=== PATIENT | male | born 1970 | race African-American/Black ===

== ENCOUNTER 2018-01-12 08:41 | Inpatient (IN) | payer MEDICAID ==
[2018-01-12] MEDS: ASPIRIN 81 MG TAB PO (09:24)
[2018-01-12] MEDS: SOD CHLORIDE 0.9% 500 ML IV (09:24)
[2018-01-12] MEDS: NITROGLYCERIN (SL) 0.4 MG TAB SL (09:25)
[2018-01-12] MEDS: ONDANSETRON 4 MG INJ IV (09:26)
[2018-01-12] MEDS: ENALAPRILAT 1.25 MG INJ IV (09:26)
[2018-01-12] MEDS: morphine 4 MG/ML VIAL IV (09:34)
[2018-01-12 09:45] LABS: ADD MAN DIFF? NO
[2018-01-12 09:48] LABS: WHITE BLOOD COUNT 3.9 10^3/ul (4.8-10.8)
[2018-01-12 09:48] LABS: ABNORMAL IP MESSAGE 1; BASOPHILS % 0.3 % (0.0-2.0); EOSINOPHILS # 0.1 10^3/ul (0.0-0.5); EOSINOPHILS % 2.1 % (0.0-7.0); HEMATOCRIT 36.2 % (42.0-52.0); HEMOGLOBIN 10.5 g/dl (14.0-18.0); LYMPHOCYTES # 1.4 10^3/ul (0.8-2.9); LYMPHOCYTES % 36.1 % (15.0-51.0); MEAN CORPUSCULAR VOLUME 75.7 fl (82.0-101.0); MONOCYTE # 0.4 10^3/ul (0.3-0.9); MONOCYTES % 9.9 % (0.0-11.0); NEUTROPHILS % 51.3 % (39.0-77.0); PLATELET COUNT 185 10^3/UL (140-415); RED BLOOD COUNT 4.78 10^6/ul (4.70-6.10); RED CELL DISTRIBUTION WIDTH 17.2 % (11.5-14.5)
[2018-01-12 10:28] LABS: ALANINE AMINOTRANSFERASE 24 IU/L (13-69); ALBUMIN 4.8 g/dl (3.3-4.9); ALBUMIN/GLOBULIN RATIO 1.33; ALKALINE PHOSPHATASE 61 IU/L (42-121); ANION GAP 19 (8-16); ASPARTATE AMINO TRANSFERASE 36 IU/L (15-46); BILIRUBIN,INDIRECT 0.3 mg/dl (0-1.1); BILIRUBIN,TOTAL 0.3 mg/dl (0.2-1.3); BLOOD UREA NITROGEN 11 mg/dl (7-20); CALCIUM 8.8 mg/dl (8.4-10.2); CARBON DIOXIDE 25 mmol/L (21-31); CHLORIDE 104 mmol/L (97-110); CREATININE 0.99 mg/dl (0.61-1.24); GLUCOSE 104 mg/dl (70-220); LIPASE 89 U/L (23-300); POTASSIUM 3.6 mmol/L (3.5-5.1); SODIUM 144 mmol/L (135-144); TOTAL PROTEIN 8.4 g/dl (6.1-8.1)
[2018-01-12 10:36] LABS: B-TYPE NATRIURETIC PEPTIDE 19 PG/ML (0-125); TROPONIN-I < 0.010 ng/ml (0.000-0.120)
[2018-01-12] MEDS ORDERED: NACL 0.9% 3 ML SYG IV (13:30)
[2018-01-12] MEDS: LISINOPRIL 5 MG TAB PO (13:30)
[2018-01-12] MEDS ORDERED: HYDROCODONE/APAP (5/325) TAB PO (13:30)
[2018-01-12 14:08] LABS: IRON 31 ug/dl (35-150)
[2018-01-12 14:18] LABS: % IRON SATURATION 7 % SAT (22-52); TOTAL IRON BINDING CAPACITY 453 ug/dl (241-421)
[2018-01-12 14:22] LABS: TROPONIN-I < 0.010 ng/ml (0.000-0.120)
[2018-01-12 16:27] LABS: FERRITIN 5.8 ng/ml (17.9-464.0)
[2018-01-12] MEDS ORDERED: SOD FERRIC GLUC COMPLX 125 MG in SOD CHLORIDE 0.9% 100 ML IVPB (18:00)
[2018-01-12] MEDS: IOHEXOL 14.3 MG(I)/ML (ADULT) BTL PO (21:52)
[2018-01-12 22:20] LABS: ANION GAP 14 (8-16); BLOOD UREA NITROGEN 12 mg/dl (7-20); CALCIUM 8.5 mg/dl (8.4-10.2); CARBON DIOXIDE 28 mmol/L (21-31); CHLORIDE 104 mmol/L (97-110); CREATININE 1.06 mg/dl (0.61-1.24); GLUCOSE 90 mg/dl (70-220); MAGNESIUM 1.8 mg/dl (1.7-2.5); POTASSIUM 3.4 mmol/L (3.5-5.1); SODIUM 143 mmol/L (135-144)
[2018-01-12] MEDS: POTASSIUM CHLORIDE (SR) 20 MEQ TAB PO (23:05)
[2018-01-13] MEDS: MAGNESIUM SULFATE 1 GM/D5W 100 ML IVPB (00:08)
[2018-01-13] MEDS: POTASSIUM CHLORIDE (SR) 20 MEQ TAB PO (00:08)
[2018-01-13] MEDS: SOD FERRIC GLUC COMPLX 125 MG in SOD CHLORIDE 0.9% 100 ML IVPB ×2 (01:04→17:14)
[2018-01-13 07:36] LABS: ADD MAN DIFF? NO
[2018-01-13 07:42] LABS: ABNORMAL IP MESSAGE 1; BASOPHILS % 0.6 % (0.0-2.0); EOSINOPHILS # 0.2 10^3/ul (0.0-0.5); EOSINOPHILS % 4.8 % (0.0-7.0); HEMATOCRIT 36.7 % (42.0-52.0); HEMOGLOBIN 10.4 g/dl (14.0-18.0); LYMPHOCYTES # 1.2 10^3/ul (0.8-2.9); LYMPHOCYTES % 34.3 % (15.0-51.0); MEAN CORPUSCULAR HEMOGLOBIN 21.8 pg (29.0-33.0); MEAN CORPUSCULAR HGB CONC 28.3 g/dl (32.0-37.0); MEAN CORPUSCULAR VOLUME 77.1 fl (82.0-101.0); MEAN PLATELET VOLUME 10.9 fl (7.4-10.4); MONOCYTE # 0.3 10^3/ul (0.3-0.9); NEUTROPHIL # 1.8 10^3/ul (1.6-7.5); PLATELET COUNT 154 10^3/UL (140-415); POSITIVE DIFF @See below; RED BLOOD COUNT 4.76 10^6/ul (4.70-6.10); RED CELL DISTRIBUTION WIDTH 17.2 % (11.5-14.5)
[2018-01-13 07:42] LABS: WHITE BLOOD COUNT 3.6 10^3/ul (4.8-10.8)
[2018-01-13 08:30] LABS: HEMOGLOBIN A1C 5.7 % (0-5.9)
[2018-01-13] MEDS: LISINOPRIL 5 MG TAB PO (08:33)
[2018-01-13] MEDS: BARIUM SULFATE 0.1% 450 ML BTL (VOLUMEN) PO ×3 (09:00→09:55)
[2018-01-13 09:19] LABS: ALANINE AMINOTRANSFERASE 23 IU/L (13-69); ALBUMIN 4.1 g/dl (3.3-4.9); ALBUMIN/GLOBULIN RATIO 1.28; ALKALINE PHOSPHATASE 57 IU/L (42-121); ANION GAP 10 (8-16); ASPARTATE AMINO TRANSFERASE 23 IU/L (15-46); BILIRUBIN,INDIRECT 0.3 mg/dl (0-1.1); BILIRUBIN,TOTAL 0.3 mg/dl (0.2-1.3); BLOOD UREA NITROGEN 12 mg/dl (7-20); CALCIUM 8.6 mg/dl (8.4-10.2); CARBON DIOXIDE 28 mmol/L (21-31); CHLORIDE 109 mmol/L (97-110); CREATININE 1.12 mg/dl (0.61-1.24); GLUCOSE 96 mg/dl (70-220); POTASSIUM 4.4 mmol/L (3.5-5.1); SODIUM 143 mmol/L (135-144); TOTAL PROTEIN 7.3 g/dl (6.1-8.1)
[2018-01-13] MEDS: IOHEXOL 350MG/ML 50 ML BTL (10:00)
[2018-01-13] MEDS ORDERED: GLUCAGON 1 MG INJ ×2 (10:01→11:50)
[2018-01-13] MEDS: IOHEXOL 100 ML (10:22)
[2018-01-13] MEDS: SOD CHLORIDE 0.9% 100 ML (10:22)
[2018-01-13 15:11] LABS: CARCINOEMBRYONIC ANTIGEN 2.3 ng/ml (0.0-5.0)
[2018-01-13 15:15] LABS: CANCER ANTIGEN 19-9 < 1.4 U/ml (0.0-37.0)
== END 2018-01-13 18:57 | disposition home or self-care (01) | DRG 378 ==
LOC: E/R 08:41 → MS4 10:51
DX: K92.2 Gastrointestinal hemorrhage, unspecified (principal); I16.1 Hypertensive emergency; D62 Acute posthemorrhagic anemia; I10 Essential (primary) hypertension; D50.9 Iron deficiency anemia, unspecified; K21.9 Gastro-esophageal reflux disease without esophagitis; D50.0 Iron deficiency anemia secondary to blood loss (chronic); Z91.14 Patient's other noncompliance with medication regimen
CPT/HCPCS: 36415; 71045; 74178; 80048; 80053; 82378; 82728; 83036; 83540; 83690; 83735; 83880; 84443; 84484; 85025; 86301; 93005; 96374; 96375; 99291-25